=== PATIENT | male | born 1995 | race Caucasian/White ===

== ENCOUNTER 2018-10-19 12:41 | Emergency (ER) | payer BC ==
[~2018-10-19] VITALS: Ht 180.3 cm; Wt 104.3 kg
[~2018-10-19 12:41] MED LIST: ALBU90I INH; ALBU90OI INH; AMOX500 PO; AMOX875 PO; AZIT250 PO; BENZ100A PO; CLARITIN-D 121 EACH PO; CODACE30 PO; CYCL10 PO; IBUP800 PO; LEVE500 PO; LIDO2L PO; METPRE4DP PO; Monodox100 MG PO; Nasonex17 GM; OXCA150 PO; PRED20 PO; PSEU120ER PO; SPACE CHAMBER1 EACH MC; TYLENOL COLD; Veetids 500500 MG PO; ZONI100 PO; Zithromax250 MG PO
[2018-10-19 13:32] LABS: BASOPHILS ABSOLUTE AUTO 0.03 K/mm3 (0.00-0.23); BASOPHILS PERCENT AUTO 0 % (0-2); EOSINOPHILS ABSOLUTE AUTO 0.03 K/mm3 (0.00-0.68); EOSINOPHILS PERCENT AUTO 0 % (0-6); Hematocrit 47.3 % (37.0-53.0); Hemoglobin 15.4 g/dL (13.5-17.5); IMMATURE GRAN ABSOLUTE AUTO 0.04 K/mm3 (0.00-0.10); IMMATURE GRAN PERCENT AUTO 0 % (0-1); LYMPHOCYTES PERCENT AUTO 14 % (21-46); MONOCYTES PERCENT AUTO 7 % (4-13); Mean Corpuscular HGB 27.4 pg (26.0-34.0); Mean Corpuscular HGB Conc 32.6 g/dL (31.5-36.5); Mean Corpuscular Volume 84 fL (80-100); Mean Platelet Volume 9.4 fL (9.1-12.4); NEUTROPHILS ABSOLUTE AUTO 9.15 K/mm3 (1.96-9.15); NEUTROPHILS PERCENT AUTO 79 % (41-73); Platelet Count 249 K/mm3 (150-400); RDW Coefficient Variation 13.2 % (11.7-14.2); RDW Standard Deviation 40.8 fL (35.1-46.3); Red Blood Cell Count 5.62 M/mm3 (4.30-5.90); White Blood Cell Count 11.65 K/mm3 (4.00-11.30)
[2018-10-19 13:46] LABS: Alanine Aminotransfer (ALT/SGP 31 U/L (12-78); Albumin, Blood 4.1 g/dL (3.4-5.0); Albumin/Globulin Ratio 1.1 (0.8-1.8); Alk Phos 96 U/L (50-136); Anion Gap 9 mmol/L (6-16); Aspartate Aminotrans (AST/SGOT 17 U/L (12-37); Bilirubin, Total 0.4 mg/dL (0.1-1.0); Blood Urea Nitrogen 14 mg/dL (8-24); Bun/Creatinine Ratio 17.3 (12.0-20.0); CO2, Blood 25 mmol/L (21-32); Calcium, Blood 8.6 mg/dL (8.5-10.1); Chloride, Blood 105 mmol/L (98-108); Creatinine, Blood 0.81 mg/dL (0.60-1.20); Globulin, Blood 3.6 g/dL (2.2-4.0); Glomerular Filtration Rate >60 (60-); Glucose, Blood 103 mg/dL (70-99); Potassium, Blood 3.9 mmol/L (3.5-5.5); Sodium, Blood 139 mmol/L (136-145); Total Protein, Blood 7.7 g/dL (6.4-8.2)
[2018-10-19] MEDS ORDERED: Augmentin 875-1 EACH PO (14:40)
[2018-10-19] MEDS ORDERED: Percocet 5-3251 EACH PO (14:40)
== END 2018-10-19 15:23 | disposition home or self-care (01) ==
LOC: ER 12:41
PROVIDERS: Physician Assistant
DX: R10.31 Right lower quadrant pain (principal); J45.909 Unspecified asthma, uncomplicated; Z79.51 Long term (current) use of inhaled steroids
CPT/HCPCS: 36415; 74177; 80053; 83690; 85025; 96374-59; 96375-59; 96376-59; 99284-25; J2270; J2405; Q9967

== ENCOUNTER 2019-04-17 13:33 | Emergency (ER) | payer BC ==
[~2019-04-17] VITALS: Ht 180.3 cm; Wt 106.6 kg
[~2019-04-17 13:33] MED LIST changes: +Augmentin 875-1 EACH PO; +Percocet 5-3251 EACH PO
[2019-04-17] MEDS ORDERED: Zithromax250 MG PO (14:16)
[2019-04-17] MEDS ORDERED: Cheratussin AC118 ML PO (14:16)
[2019-04-17] MEDS ORDERED: BENZ100A PO (14:16)
== END 2019-04-17 14:21 | disposition home or self-care (01) ==
LOC: ER 13:33
DX: J18.9 Pneumonia, unspecified organism (principal); J45.909 Unspecified asthma, uncomplicated; G40.909 Epilepsy, unspecified, not intractable, without status epilepticus
CPT/HCPCS: 71046; 99283-25

== ENCOUNTER 2020-01-07 10:14 | Observation (INO) | payer OTHER ==
[~2020-01-07] VITALS: Ht 177.8 cm; Wt 113.4 kg
[~2020-01-07 10:14] MED LIST changes: +Cheratussin AC118 ML PO
[2020-01-07 11:19] LABS: BASOPHILS ABSOLUTE AUTO 0.04 K/mm3 (0.00-0.23); BASOPHILS PERCENT AUTO 0 % (0-2); EOSINOPHILS ABSOLUTE AUTO 0.03 K/mm3 (0.00-0.68); EOSINOPHILS PERCENT AUTO 0 % (0-6); Hematocrit 48.2 % (37.0-53.0); IMMATURE GRAN ABSOLUTE AUTO 0.08 K/mm3 (0.00-0.10); IMMATURE GRAN PERCENT AUTO 1 % (0-1); LYMPHOCYTES ABSOLUTE AUTO 1.57 K/mm3 (0.84-5.20); LYMPHOCYTES PERCENT AUTO 10 % (21-46); MONOCYTES ABSOLUTE AUTO 1.09 K/mm3 (0.16-1.47); MONOCYTES PERCENT AUTO 7 % (4-13); Mean Corpuscular HGB 27.4 pg (26.0-34.0); Mean Corpuscular HGB Conc 33.2 g/dL (31.5-36.5); Mean Corpuscular Volume 83 fL (80-100); NEUTROPHILS ABSOLUTE AUTO 12.61 K/mm3 (1.96-9.15); NEUTROPHILS PERCENT AUTO 82 % (41-73); Platelet Count 240 K/mm3 (150-400); RDW Coefficient Variation 12.7 % (11.7-14.2); RDW Standard Deviation 37.9 fL (35.1-46.3); Red Blood Cell Count 5.84 M/mm3 (4.30-5.90); White Blood Cell Count 15.42 K/mm3 (4.00-11.30)
[2020-01-07 11:34] LABS: Alanine Aminotransfer (ALT/SGP 42 U/L (12-78); Albumin, Blood 4.4 g/dL (3.4-5.0); Albumin/Globulin Ratio 1.1 (0.8-1.8); Alk Phos 90 U/L (50-136); Anion Gap 5 mmol/L (6-16); Aspartate Aminotrans (AST/SGOT 19 U/L (12-37); Bilirubin, Total 0.5 mg/dL (0.1-1.0); Blood Urea Nitrogen 13 mg/dL (8-24); Bun/Creatinine Ratio 15.9 (12.0-20.0); CO2, Blood 27 mmol/L (21-32); Calcium, Blood 9.1 mg/dL (8.5-10.1); Chloride, Blood 107 mmol/L (98-108); Creatinine, Blood 0.82 mg/dL (0.60-1.20); Globulin, Blood 3.9 g/dL (2.2-4.0); Glomerular Filtration Rate >60 (60-); Glucose, Blood 106 mg/dL (70-99); Potassium, Blood 3.7 mmol/L (3.5-5.5); Sodium, Blood 139 mmol/L (136-145); Total Protein, Blood 8.3 g/dL (6.4-8.2)
--- NOTE | 2020-01-07 15:54 | NUR ---
PT TRANSPORTED TO UNIT AT APROX 1400 FROM ER. PT REPORTS TOLERABLE PAIN LEVEL 3/10 AT THIS TIME. 18GA IV STARTED IN L AC. IVF PER EMAR.
--- NOTE | 2020-01-07 17:48 | NUR ---
PT TO OR AT APROX 1744.
--- NOTE | 2020-01-08 04:02 | NUR ---
SHIFT SUMMARY POD#1 LAP APPI. AAOX4. PT DENIES DISCOMFORT/NAUSEA POST OP. ABD INCISIONS WITH GAUZE X3 C/D/I. PT UP INDEPENDENT IN ROOM. GOOD PO INTAKE + OUTPUT. IVF + ABX PER ORDERS. PT RESTING WELL T/O NIGHT. NO ACUTE CHANGES OVER NIGHT. PT CURRENTLY RESTING WITH CALL LIGHT IN REACH.
--- NOTE | 2020-01-08 08:24 | NUR ---
PT APPEARS TO BE RESTING COMFORTABLY AT TIME OF ASSESSMENT. PT DENIES PAIN, HAS NOT BEEN MEDICATED FOR PAIN POST-OP. DENIES N/V, TOLRATING REGULAR DIET.
--- NOTE | 2020-01-08 11:21 | NUR ---
PT HAS BEEN AMBULATING IN ROOM INDEPENDENTLY, REPORTS PAIN 02/17, REQUESTING PAIN MEDICATION. PT MEDICATED WITH 1 NORCO.
[2020-01-08] MEDS ORDERED: AMOCLA875 PO (11:23)
[2020-01-08] MEDS ORDERED: HYDR1TAB94 PO (11:43)
== END 2020-01-08 13:15 | disposition home or self-care (01) ==
LOC: ER 10:14 → SURS 10:15
PROVIDERS: Emergency Medicine; ADMIT Surgery
PROC: 0DTJ4ZZ Resection of Appendix, Percutaneous Endoscopic Approach (ICD-10-PCS; principal; 2020-01-08)
DX: K35.80 Unspecified acute appendicitis (principal)
CPT/HCPCS: 36415; 74177; 80053; 83690; 85025; 96361; 96365-59; 96366; 96375; 96376; 99285-25; A9270-GY; G0378; J0694; J1885; J2250; J2405; J2704; J3010; J7030; J7120; Q9967

== ENCOUNTER 2022-03-16 21:38 | Emergency (ER) | payer OTHER ==
[~2022-03-16] VITALS: Ht 177.8 cm; Wt 113.4 kg
[~2022-03-16 21:38] MED LIST changes: +AMOCLA875 PO; +HYDR1TAB94 PO
== END 2022-03-16 22:22 | disposition home or self-care (01) ==
LOC: ER 21:38
DX: R03.0 Elevated blood-pressure reading, without diagnosis of hypertension (principal); J45.909 Unspecified asthma, uncomplicated
CPT/HCPCS: 99282

== ENCOUNTER 2023-03-14 18:07 | Emergency (ER) | payer OTHER ==
[~2023-03-14] VITALS: Ht 177.8 cm; Wt 124.7 kg
[~2023-03-14 18:07] MED LIST changes: +Ultram50 MG PO
[2023-03-14 18:09] VITALS: BP 157/92
[2023-03-14] MEDS ORDERED: ESCI20 PO (18:14)
[2023-03-14] MEDS ORDERED: LOSA50 PO (18:14)
[2023-03-14] MEDS ORDERED: Adipex-P37.5 MG PO (18:14)
[2023-03-14] MEDS ORDERED: METO25ER PO (18:15)
== END 2023-03-14 18:23 | disposition home or self-care (01) ==
LOC: ER 18:07
DX: S41.111A Laceration without foreign body of right upper arm, initial encounter (principal); W26.8XXA Contact with other sharp object(s), not elsewhere classified, initial encounter; Z23 Encounter for immunization
CPT/HCPCS: 90471; 90714; 99282-25